=== PATIENT | male | born 1965 | race Caucasian/White ===

== ENCOUNTER → 2023-03-17 | Outpatient (CLI) | payer BC ==
[~2023-03-17] VITALS: Ht 170.2 cm; Wt 111.1 kg
[~2023-03-17] MED LIST: ADENOSINE 49 MG in GIVE UN-DILUTED 0 ML IV STA; ADENOSINE 93 MG in GIVE UN-DILUTED 0 ML IV STA
[2023-03-17 10:55] VITALS: BP 148/89
== END | disposition home or self-care (01) ==
LOC: XYW 09:26
PROVIDERS: ATTEND Internal Medicine
DX: I10 Essential (primary) hypertension (principal); R07.9 Chest pain, unspecified
CPT/HCPCS: 78452; 93017; A9500; J0153

== ENCOUNTER → 2023-03-30 | Outpatient (CLI) | payer BC | END | disposition home or self-care (01) | LOC: XYW 07:21 | PROVIDERS: ATTEND Internal Medicine | DX: I11.9 Hypertensive heart disease without heart failure (principal); R07.9 Chest pain, unspecified | CPT/HCPCS: 93306 ==